=== PATIENT | female | born 1990 | race Caucasian/White ===

== ENCOUNTER 2021-04-12 18:35 | Emergency (ER) | payer MEDICAID, OTHER ==
[~2021-04-12] VITALS: Ht 160 cm; Wt 61.0 kg
--- NOTE | 2021-04-12 20:45 | NUR ---
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
[2021-04-12] MEDS ORDERED: HYDROcodone/APAP 5/325 TABLET PO ONE (21:00)
[2021-04-12] MEDS ORDERED: HYDROcodone/APAP 5/325 TABLET ONE (21:35)
--- NOTE | 2021-04-12 21:40 | NUR ---
PT MEDICATED PER MAR. VSS.
[2021-04-12 21:42] VITALS: BP 117/79
[2021-04-12] MEDS ORDERED: CITA10TA8 PO (21:43)
[2021-04-12] MEDS ORDERED: DIPH,PERTUSS(ACELL),TET VAC/PF 0.5 ML IM-VACC ONE ×2 (22:00→22:07)
== END 2021-04-12 22:22 | disposition home or self-care (01) ==
LOC: ED 21:20
DX: S53.401A Unspecified sprain of right elbow, initial encounter (principal); W18.30XA Fall on same level, unspecified, initial encounter; Y93.89 Activity, other specified; Y92.89 Other specified places as the place of occurrence of the external cause; Y99.8 Other external cause status
CPT/HCPCS: 90471; 90715